=== PATIENT | female | born 1965 | race Caucasian/White ===

== ENCOUNTER 2022-01-28 20:46 | Emergency (ER) | payer MEDICAID ==
[~2022-01-28] VITALS: Ht 165.1 cm; Wt 95.3 kg
[2022-01-28 22:10] VITALS: BP_SYST 158
--- NOTE | 2022-01-28 22:26 | NUR ---
Patient to ER Chair 1 to [email or web address] for evaluation.
--- NOTE | 2022-01-28 22:30 | NUR ---
JADIEL De La Rosa at bedside examining patient.
[2022-01-29] MEDS ORDERED: NAPR-686 PO (01:02)
[2022-01-29] MEDS ORDERED: HYDR-3917 PO (01:02)
[2022-01-29] MEDS ORDERED: CEPH250C PO (01:05)
[2022-01-29 01:32] VITALS: BP_SYST 130
--- NOTE | 2022-01-29 01:35 | NUR ---
Pt C/O Right ankle pain after mechanical fall Xray confirms no fracture Right ankle placed in walking boot as ordered by
--- NOTE | 2022-01-29 01:36 | NUR ---
Pt DC per MD's order DC instructions and prescription given to pt Pt DC per MD's order Pt verbalized understandings Pt AOX4 VSS Verbally responsive Able to make needs known Pt exited ED in stable condition
== END 2022-01-29 01:32 | disposition home or self-care (01) ==
LOC: SED 20:46
DX: S93.401A Sprain of unspecified ligament of right ankle, initial encounter (principal); E11.9 Type 2 diabetes mellitus without complications; I10 Essential (primary) hypertension; Z79.899 Other long term (current) drug therapy; X50.1XXA Overexertion from prolonged static or awkward postures, initial encounter; Y93.89 Activity, other specified; Y92.89 Other specified places as the place of occurrence of the external cause; Y99.8 Other external cause status
CPT/HCPCS: 99283